=== PATIENT | female | born 1990 | race Caucasian/White ===

== ENCOUNTER 2020-06-27 07:54 | Day surgery (SDC) | payer MEDICAID, SELFPAY ==
[~2020-06-27] VITALS: Ht 165.1 cm; Wt 113.4 kg
[2020-06-27] MEDS ORDERED: fentaNYL citrate 0.05 MG/ML VIAL ONE (10:22)
[2020-06-27] MEDS ORDERED: MIDAZOLAM 2 MG/2 ML VIAL ONE ×2 (10:22→10:34)
[2020-06-27] MEDS ORDERED: fentaNYL citrate 0.05 MG/ML VIAL IVP ONE (10:50)
[2020-06-27] MEDS ORDERED: MIDAZOLAM 2 MG/2 ML VIAL IVP ONE (10:50)
== END 2020-06-27 11:40 | disposition home or self-care (01) ==
LOC: MDS 07:54 → MFCC 08:33 → MDS 11:40
PROVIDERS: ATTEND Internal Medicine Gastroenterology
DX: R10.13 Epigastric pain (principal); K21.9 Gastro-esophageal reflux disease without esophagitis; Z20.828 Contact with and (suspected) exposure to other viral communicable diseases; K76.0 Fatty (change of) liver, not elsewhere classified; E66.01 Morbid (severe) obesity due to excess calories; Z68.41 Body mass index [BMI] 40.0-44.9, adult; K29.70 Gastritis, unspecified, without bleeding; E03.9 Hypothyroidism, unspecified; Z90.49 Acquired absence of other specified parts of digestive tract
CPT/HCPCS: 36415; 43239; 81025; 86677; J2250; J3010; U0003